=== PATIENT | female | born 1960 | race Caucasian/White ===

== ENCOUNTER → 2016-09-14 | Outpatient (CLI) | payer BC ==
--- NOTE | 2016-09-14 15:29 | US ---
EXAM DESCRIPTION: Carotid Duplex CLINICAL HISTORY: N95.0 COMPARISON: None. TECHNIQUE: Transcutaneous scanning utilizing 2-dimensional and Doppler modes to evaluate the bilateral carotid systems and vertebral arteries. Percentage of diameter of stenosis or no stenosis recorded will be based upon NASCET criteria. FINDINGS: Peak systolic/end diastolic (CM-Sec) CCA Right 84/9 Left 92/30. ICA Right proximal 49/23, mid 57/26. Left proximal 55/18, Distal 56/24. Vertebral Right 33/12 Left 42/17. ECA (PS Only) Right 78/11 left 75/12. ICA/CCA peak systolic ratio: Right 0.7 Left 0.6 ICA/CCA end diastolic ratio: Right 2.9 Left 0.8 Vertebral arteries: antegrade flow. Comments Comments: Calcified plaque in the mid left CCA with 13% area stenosis. IMPRESSION: 1. Doppler evaluation of the bilateral carotid systems and vertebral arteries shows no hemodynamically significant stenoses. 2. No significant amount of plaque seen in the carotid arteries bilaterally. Bilateral vertebral arteries showed antegrade-cephalad flow. Electronically signed by: Albaro Trevino MD 09/14/2016 3:27 PM CDT Workstation: [id number]
== END | disposition home or self-care (01) ==
LOC: US 12:48
PROVIDERS: ATTEND Obstetrics & Gynecology
DX: N95.0 Postmenopausal bleeding (principal); E11.9 Type 2 diabetes mellitus without complications; L65.9 Nonscarring hair loss, unspecified; F17.200 Nicotine dependence, unspecified, uncomplicated; R07.9 Chest pain, unspecified; R42 Dizziness and giddiness

== ENCOUNTER 2016-09-16 19:27 | Emergency (ER) | payer BC ==
--- NOTE | 2016-09-16 20:28 | RAD ---
EXAM DESCRIPTION: Chest,1 View CLINICAL HISTORY: 56 years Female dizziness, throat fullness COMPARISON: 07/31/2014 FINDINGS: The cardiomediastinal silhouette appears unremarkable. No consolidating infiltrates or pleural effusions. No pneumothorax. Bone island in the humeral head on the right unchanged from the previous. IMPRESSION: No acute abnormality is identified. Electronically signed by: Carley Ramirez 09/16/2016 8:27 PM CDT
--- NOTE | 2016-09-16 20:45 | ED.PDOC ---
History of Present Illness - General Chief Complaint: General Stated Complaint: dizziness Time Seen by Provider: 09/16/16 19:58 Source: patient Exam Limitations: no limitations - History of Present Illness Initial Comments: Patient presents with 1 1/2 weeks of dizziness. She says the room spins and she can lose her balance. No falls. No N/V/D. She had another episode years ago that resolved on its own. She also complains of "glands swelling" under her chin. This has been going on for about one week. Has a mild sore throat. She is a NIDDM and claims to have had good blood sugars. No other complaints. Timing/Duration: 1 week Severity: moderate Improving Factors: nothing Worsening Factors: nothing Associated Symptoms: denies symptoms Allergies/Adverse Reactions: Allergies NO KNOWN ALLERGY Allergy (Verified 09/16/16 22:02) Home Medications: Ambulatory Orders Meclizine HCl [Meclizine 25] 25 mg PO BID #30 tab 09/16/16 Review of Systems - Review of Systems Constitutional: States: no symptoms reported EENTM: States: no symptoms reported Respiratory: States: no symptoms reported Cardiology: States: no symptoms reported Gastrointestinal/Abdominal: States: no symptoms reported Genitourinary: States: no symptoms reported Musculoskeletal: States: no symptoms reported Skin: States: no symptoms reported Neurological: States: see HPI Endocrine: States: see HPI Hematologic/Lymphatic: States: no symptoms reported Past Medical History (General) - Patient Medical History Hx Seizures: No Hx Stroke: No Hx Dementia: No Hx Asthma: Yes Hx of COPD: Yes Hx Cardiac Disorders: No Hx Congestive Heart Failure: No Hx Pacemaker: No Hx Hypertension: No Hx Thyroid Disease: Yes - no longer on meds Hx Diabetes: Yes Hx Gastroesophageal Reflux: Yes Hx Renal Disease: No Hx Cancer: No Hx of HIV: No Hx Hepatitis C: No Hx MRSA: No Surgical History: no surgical history - Vaccination History Hx Tetanus, Diphtheria Vaccination: No Hx Influenza Vaccination: No Hx Pneumococcal Vaccination: No Immunizations Up to Date: No - Social History Hx Tobacco Use: Yes Hx Alcohol Use: No Hx Substance Use: No Hx Substance Use Treatment: No Hx Depression: No - Female History Patient is a Female of Child Bearing Age (10 -59 yrs old): Yes Physical Exam - Physical Exam General Appearance: Alert Eye Exam: bilateral normal Ears, Nose, Throat: hearing grossly normal, normal ENT inspection, normal pharynx Neck: non-tender, full range of motion, supple Respiratory: chest non-tender, lungs clear, normal breath sounds Cardiovascular/Chest: normal peripheral pulses, regular rate, rhythm Gastrointestinal/Abdominal: normal bowel sounds, non tender, soft, no organomegaly, no pulsatile mass Back Exam: normal inspection, no CVA tenderness Extremity: normal range of motion, non-tender, normal inspection, no pedal edema 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 normal horizontal and vertical nystagmus DTR: 2+: Biceps, left, Biceps, right, Triceps, left, Triceps, right, Brachioradialis, left, Brachioradialis, right, Achilles, left, Achilles, right, Patellar, left, Patellar, right, Babinski, left, Babinski, right Skin Exam: normal color Lymphatic: no adenopathy Progress - Progress Progress: 09/16/16 22:20 Potassium 3.2. She was given KCl 40 meq po x one. Cardiac enzymes negative. Blood glucose wnl. Patient given Meclizine for BPPH. Rapid strep negative. Laboratory Tests 09/16/16 09/16/16 09/16/16 20:20 20:20 20:20 WBC 11.5 H RBC 5.25 Hgb 14.5 Hct 44.0 MCV 83.8 MCH 27.7 MCHC 33.0 RDW 14.3 Plt Count 303 MPV 8.3 Absolute Neuts (auto) 6.90 H Absolute Lymphs (auto) 3.70 H Absolute Monos (auto) 0.60 Absolute Eos (auto) 0.20 Absolute Basos (auto) 0.20 H Neutrophils % 59.5 Lymphocytes % 31.7 Monocytes % 5.3 Eosinophils % 2.1 Basophils % 1.4 Sodium 140 Potassium 3.2 L Chloride 98 L Carbon Dioxide 31 Anion Gap 14.2 BUN 17 Creatinine 0.97 BUN/Creatinine Ratio 17.5 Random Glucose 94 Serum Osmolality 280.7 Calcium 9.3 Total Bilirubin 0.2 D AST 16 ALT 13 Alkaline Phosphatase 86 Creatine Kinase 46 CK-MB (CK-2) 1.1 CK-MB (CK-2) % Not Reportable Troponin I < 0.02 B-Natriuretic Peptide 24.4 Serum Total Protein 7.5 Albumin 3.9 Globulin 3.6 H Albumin/Globulin Ratio 1.1 TSH 2.99 Thyroxine (T4) 8.02 Group A Strep DNA 09/16/16 20:45 WBC RBC Hgb Hct MCV MCH MCHC RDW Plt Count MPV Absolute Neuts (auto) Absolute Lymphs (auto) Absolute Monos (auto) Absolute Eos (auto) Absolute Basos (auto) Neutrophils % Lymphocytes % Monocytes % Eosinophils % Basophils % Sodium Potassium Chloride Carbon Dioxide Anion Gap BUN Creatinine BUN/Creatinine Ratio Random Glucose Serum Osmolality Calcium Total Bilirubin AST ALT Alkaline Phosphatase Creatine Kinase CK-MB (CK-2) CK-MB (CK-2) % Troponin I B-Natriuretic Peptide Serum Total Protein Albumin Globulin Albumin/Globulin Ratio TSH Thyroxine (T4) Group A Strep DNA Negative Departure - Departure Clinical Impression: Benign paroxysmal positional vertigo, Submandibular gland swelling Disposition: Discharge to Home or Self Care Condition: Good Diet: resume usual diet Activity: increase activity as tolerated Referrals: Zachary Solis MD [Primary Care Provider] - 1-2 Weeks Prescriptions: Meclizine HCl [Meclizine 25] 25 mg PO BID #30 tab Home Medications: Ambulatory Orders Meclizine HCl [Meclizine 25] 25 mg PO BID #30 tab 09/16/16 Additional Instructions: Take medication as prescribed. See your regular doctor on monday to schedule further evaluation of your swollen glands.
[2016-09-16] MEDS ORDERED: MECLIZINE HCL 12.5 MG TAB PO ONE (21:22)
[2016-09-16] MEDS ORDERED: KCL 40 MEQ/WATER FOR INJECTION 40 MEQ in PREMIX BAG 1 BAG IVPB ONE (21:34)
[2016-09-16] MEDS ORDERED: [UNRECOGNIZED DRUG - OTHER] IVPB ONE (22:06)
[2016-09-16] MEDS ORDERED: POTASSIUM CHLORIDE IVPB ONE (22:06)
[2016-09-16] MEDS ORDERED: KCL 40 MEQ/WATER FOR INJECTION 100 ML IVPB ONE (22:07)
[2016-09-16] MEDS ORDERED: POTASSIUM CHLORIDE 20 MEQ TAB PO ONE (22:24)
[2016-09-17 00:28] VITALS: O2SAT 98
[2016-09-17 00:29] VITALS: TEMP 98.9
[2016-09-17 00:44] VITALS: BP 120/74
== END 2016-09-16 22:50 | disposition home or self-care (01) ==
LOC: ER 19:27
DX: H81.10 Benign paroxysmal vertigo, unspecified ear (principal); R59.0 Localized enlarged lymph nodes; J44.9 Chronic obstructive pulmonary disease, unspecified; Z86.39 Personal history of other endocrine, nutritional and metabolic disease; E11.9 Type 2 diabetes mellitus without complications; K21.9 Gastro-esophageal reflux disease without esophagitis; Z87.891 Personal history of nicotine dependence
CPT/HCPCS: 36415; 71010; 80053; 81001; 82550; 82553; 83880; 84436; 84443; 84484; 85025; 87070; 87651; J3480

== ENCOUNTER → 2016-11-29 | Outpatient (CLI) | payer BC ==
--- NOTE | 2016-12-01 11:17 | MAM ---
EXAM DESCRIPTION: 3D Screening BILATERAL CLINICAL HISTORY: 56 yearsFemaleSCREENING no complaints. No family history of breast cancer. Postmenopausal. No HRT. COMPARISON: Baseline study at this facility. No prior reports available. TECHNIQUE: Bilateral CC and MLO projection full-field images, 3-D tomosynthesis digital mammographic technique. Also bilateral synthesized CC/ MLO full-field images. CAD not utilized. FINDINGS: The breast parenchymal density pattern is: Scattered areas of fibroglandular density. No skin thickening or nipple retraction minimal focal asymmetry in the lateral retroareolar left breast at approximately 400 clock position. Focal architectural distortion approximately 1.5 cm posterior to the nipple. No associated calcifications within the lesion. Bilateral solitary microcalcifications. No focal, stellate mass or density, focal asymmetry , and no suspicious microcalcifications right breast. IMPRESSION: BI-RADS CATEGORY: 0 - INCOMPLETE- Need additional imaging evaluation. FOLLOW-UP: Recall for additional imaging: Digital 2-D orthogonal spot compression of the retroareolar left breast. Targeted left breast ultrasound of the regions of interest. Written communication concerning the IMPRESSION and Follow-up, will be mailed to the patient and referring health care provider. Electronically signed by: Albaro Trevino MD 12/01/2016 11:15 AM CDT
== END ==
LOC: MAMMO 16:30
PROVIDERS: ATTEND Obstetrics & Gynecology
DX: Z12.31 Encounter for screening mammogram for malignant neoplasm of breast (principal)
CPT/HCPCS: 77063; G0202

== ENCOUNTER → 2016-12-15 | Outpatient (CLI) | payer BC ==
--- NOTE | 2016-12-15 15:54 | US ---
EXAM DESCRIPTION: Breast,Left CLINICAL HISTORY: 56 yearsFemaleABNORMAL MAMMO COMPARISON: Digital 2-D/3-D, tomosynthesis diagnostic mammogram left breast this visit. TECHNIQUE: Transcutaneous scanning of the retroareolar left breast utilizing two-dimensional and Doppler modes. Scanning performed by the hogshead hand and Dr. Trevino. FINDINGS: Scanning of the retroareolar left breast with emphasis at the 400 clock position. Fibroglandular and fatty heterogeneous tissues. No discrete solid mass. No cyst. Scattered ducts. No parenchymal edema or large calcifications. IMPRESSION: 1. Bi-Rads Category 2: Benign. 2. Please refer to diagnostic 2-D and 3-D digital left breast mammographic examination and report on this visit. The findings and the follow-up plan were reviewed in person with the patient after the examination. Written communication in regards to the IMPRESSION and follow-up will be mailed to the patient and referring health care provider. Electronically signed by: Albaro Trevino MD 12/15/2016 3:53 PM CDT
--- NOTE | 2016-12-15 15:55 | MAM ---
EXAM DESCRIPTION: 3D Diagnostic, Left CLINICAL HISTORY: 56 yearsFemaleABNORMAL MAMMO retroareolar left breast.. COMPARISON: Bilateral screening 3-D breast tomosynthesis 11/29/2016.. Report from prior examination also reviewed. TECHNIQUE: Left LM projection full-field images, 3-D tomosynthesis digital mammographic technique. Left 2-D CC and LM retroareolar Spot compression digital technique. Also left synthesized LM full-field images. CAD not utilized. FINDINGS: The breast parenchymal density pattern is: Scattered areas of fibroglandular density. No skin thickening or nipple retraction . Questionable density 1 cm from the nipple at the 400 clock position, less than 1 cm in diameter. No focal asymmetry , and no suspicious microcalcifications retroareolar left breast. ULTRASOUND: Scanning of the retroareolar left breast with emphasis at the 400 clock position. Fibroglandular and fatty heterogeneous tissues. No discrete solid mass. No cyst. Scattered ducts. No parenchymal edema or large calcifications. IMPRESSION: BI-RADS CATEGORY: 2 - BENIGN FINDINGS. FOLLOW UP: Routine digital bilateral screening, one year interval from November 2016. Written communication explaining the IMPRESSION and follow-up, will be mailed to the patient and referring health care provider. According to the [employer], yearly mammograms are recommended starting at age 40 and continuing as long as a woman is in good health. Any breast change noted on a breast self-exam should be reported promptly to the patient's healthcare provider. Breast MRI is recommended for women with an approximately 20-25% or greater lifetime risk of breast cancer, including women with a strong family history of breast or ovarian cancer and women who have been treated for Hodgkin's disease. A negative mammographic report should not delay tissue diagnosis in patients with significant clinical history or physical findings. Extremely dense breast tissue limits the sensitivity of digital mammography. Electronically signed by: Albaro Trevino MD 12/15/2016 3:54 PM CDT
== END | disposition home or self-care (01) ==
LOC: MAMMO 14:32
PROVIDERS: ATTEND Obstetrics & Gynecology
DX: R92.8 Other abnormal and inconclusive findings on diagnostic imaging of breast (principal)
CPT/HCPCS: 76641; G0206; G0279

== ENCOUNTER → 2017-07-17 | Outpatient (CLI) | payer BC | LOC: LAB.O 09:41 | PROVIDERS: ATTEND Obstetrics & Gynecology | DX: R53.81 Other malaise (principal); L65.9 Nonscarring hair loss, unspecified ==

== ENCOUNTER → 2017-08-02 | Outpatient (CLI) | payer BC ==
--- NOTE | 2017-08-02 20:50 | US ---
EXAM DESCRIPTION: Liver sonogram right upper quadrant CLINICAL HISTORY: RUQ PAIN COMPARISON: None Available. TECHNIQUE: Right upper quadrant ultrasound FINDINGS: Pancreas: Visualized portions of the pancreas are unremarkable. Bowel gas obscures some areas. Aorta/inferior vena cava: No aortic aneurysm. Normal inferior vena cava. Liver: The liver is homogeneous in texture with mildly increased echogenicity consistent with fatty infiltration.. No focal liver lesion or intrahepatic bile duct dilatation. No liver surface irregularity. Normal appearance of the portal vein and hepatic veins. Gallbladder: Gallbladder appears normal with no intraluminal stones or wall thickening. Common bile duct: Normal caliber measuring 3.3 mm. Right kidney: Renal length is 9.6 cm. Normal cortical echogenicity. Cortical thickness is normal. No hydronephrosis is seen. No renal mass or shadowing calculus. Question tiny cyst in the upper right kidney. IMPRESSION: No diagnostic abnormality is identified on sonographic examination of the right upper quadrant. Electronically signed by: Jaron Garcia MD 08/02/2017 8:48 PM CDT
== END ==
LOC: RAD 10:21
PROVIDERS: ATTEND Obstetrics & Gynecology
DX: R10.11 Right upper quadrant pain (principal)

== ENCOUNTER → 2017-08-24 | Outpatient (CLI) | payer BC ==
--- NOTE | 2017-08-25 | NM ---
EXAM DESCRIPTION: Nuclear medicine hepatobiliary scan w pharm CLINICAL HISTORY: Right upper quadrant abdominal pain, right lower quadrant abdominal pain, and shoulder pain. Patient reports history of bloating and early Monday. COMPARISON: Ultrasound liver dated August 02, 2017 TECHNIQUE: Routine hepatobiliary scan was performed following intravenous administration of 8.2 mCi technetium 99m mebrofenin. 16 ounces of Ensure Plus was administered orally to stimulate gallbladder contraction. FINDINGS: Hepatobiliary scan shows prompt accumulation of the radiopharmaceutical within the liver and excretion into the biliary ductal system, gallbladder, and small bowel. Gallbladder ejection fraction is assessed following oral ingestion of Ensure Plus. Patient reports mild cramping and mild bloating. Gallbladder ejection fraction is measured at 39.5%. IMPRESSION: 1. Visualization of the gallbladder essentially excludes acute cholecystitis. 2. Normal gallbladder ejection fraction at 39.5% (normal range is greater than 35%). Electronically signed by: Melecio Navas MD 08/24/2017 11:59 PM CDT
== END ==
LOC: NM 08:36
PROVIDERS: ATTEND Obstetrics & Gynecology
DX: R10.11 Right upper quadrant pain (principal)
CPT/HCPCS: 78227; A9537

== ENCOUNTER → 2018-07-06 | Outpatient (CLI) | payer BC ==
--- NOTE | 2018-07-06 15:13 | RAD ---
EXAM: Lumbar Spine 5 Views CLINICAL HISTORY: RADICULOPATY COMPARISON STUDY: Lumbar spine x-rays September 05, 2006 TECHNICAL: AP, lateral and bilateral oblique x-rays of the lumbar spine FINDINGS: The vertebral bodies are in alignment. There is no visible fracture. Mild disc height loss is present at the last 3 levels with mild endplate degenerative changes. There are moderate facet arthropathy changes at L4-5 and L5-S1. The bilateral oblique images show intact posterior elements IMPRESSION: 1. Mild degenerative disc changes at the last 3 levels of the lumbar spine. 2. Moderate facet arthropathy at L4-5 and L5-S1. Electronically signed by: Shashank Duong MD 07/06/2018 3:11 PM CDT
== END ==
LOC: RAD 08:28
PROVIDERS: ATTEND Internal Medicine
DX: M51.16 Intervertebral disc disorders with radiculopathy, lumbar region (principal); M47.26 Other spondylosis with radiculopathy, lumbar region